=== PATIENT | female | born 1940 | race Caucasian/White ===

== ENCOUNTER 2017-04-04 19:29 | Observation (INO) | payer OTHER ==
[2017-04-04 19:39] VITALS: BMI 24.1
[2017-04-04] MEDS ORDERED: Morphine 2 mg/ml ISec IVP STA (22:09)
[2017-04-04] MEDS ORDERED: Morphine 2 mg/ml ISec ONE (22:09)
[2017-04-04 22:37] LABS: BASO # 0.06 K/mm3 (0.0-2.0); BASO % 1.8 % (0.0-3.0); EOS % 0.6 % (1.5-5.0); GRAN # 2.21 (1.4-6.5); GRAN % 66.7 % (50.0-68.0); HEMOGLOBIN 9.3 g/dL (12.0-16.0); LYMPH # 0.7 (1.2-3.4); LYMPH % 21.8 % (22.0-35.0); MEAN CORPUSCULAR HEMOGLOBIN 35.5 pg (25.0-35.0); MEAN CORPUSCULAR HGB CONC 32.9 g/dl (31.0-37.0); MEAN PLATELET VOLUME 10.6 fl (7.0-11.0); MONO # 0.3 (0.1-0.6); MONO % 9.1 % (1.0-6.0); RBC 2.62 10^6/uL (3.5-6.1); RED CELL DISTRIBUTION WIDTH 14.7 % (11.5-14.5); WHITE BLOOD COUNT 3.3 10^3/ul (4.5-11.0)
[2017-04-04 22:42] LABS: ALB/GLOB RATIO 1.4 (1.1-1.8); ALBUMIN 4.1 g/dL (3.0-4.8); ALT/SGPT 38 U/L (7-56); AST/SGOT 43 U/L (14-36); BLOOD UREA NITROGEN 14 mg/dL (7-21); CALCIUM 9.7 mg/dL (8.4-10.5); GFR AFRICAN-AMERICAN > 60; GFR NON-AFRICAN AMERICAN > 60
[2017-04-04 22:47] LABS: INR 1.09 (0.93-1.08); PARTIAL THROMBOPLASTIN TIME 30.9 Seconds (25.1-36.5); PROTHROMBIN TIME 12.4 SECONDS (9.4-12.5)
[2017-04-04] MEDS ORDERED: Iohexol 350 MG/100 ML VIAL ONE (23:04)
[2017-04-04 23:28] LABS: URINE BILIRUBIN NEGATIVE (NEGATIVE); URINE BLOOD NEGATIVE (NEGATIVE); URINE GLUCOSE (UA) NEGATIVE (NEGATIVE); URINE LEUKOCYTE ESTERASE TRACE Leu/uL (NEGATIVE); URINE NITRATE NEGATIVE (NEGATIVE); URINE PROTEIN NEGATIVE mg/dL (<30 mg/dL); URINE UROBILINOGEN 0.2 E.U./dL (<1 E.U./dL)
[2017-04-04 23:45] LABS: URINE APPEARANCE CLEAR (CLEAR); URINE COLOR YELLOW (YELLOW)
[2017-04-04 23:56] LABS: URINE EPITHELIAL CELLS 0 - 2 /hpf (0-5); URINE RBC 0 - 2 /hpf (0-2); URINE WBC 0 - 2 /hpf (0-6)
--- NOTE | 2017-04-05 00:12 | CT ---
EXAM: CT Chest With Intravenous Contrast CT Abdomen and Pelvis With Intravenous Contrast CLINICAL HISTORY: 77 years old, female; Pain and injury or trauma; Fall; Initial encounter; Abrasion; Abdominal pain; Flank; Right; Pleuordynia; Patient HX: S/P fall onto bathtub, + rlq pain TECHNIQUE: Axial computed tomography images of the chest, abdomen and pelvis with intravenous contrast. All CT scans at this facility use one or more dose reduction techniques, viz.: automated exposure control; ma/kV adjustment per patient size (including targeted exams where dose is matched to indication; i.e. head); or iterative reconstruction technique. Coronal and sagittal reformatted images were created and reviewed. CONTRAST: 45 mL of OMNIPAQUE 350 administered intravenously. COMPARISON: No relevant prior studies available. FINDINGS: CHEST: Lungs: Diffuse interstitial edema. Bilateral pulmonary groundglass opacity. Pleural space: Trace to small right pleural effusion. No pneumothorax. Heart: Mild cardiomegaly. No significant pericardial effusion. Mediastinum: Small hiatal hernia. ABDOMEN: Liver: Unremarkable. No mass. Gallbladder and bile ducts: Unremarkable. No calcified stones. No ductal dilation. Pancreas: Unremarkable. No ductal dilation. No mass. Spleen: Unremarkable. No splenomegaly. Adrenals: 12 mm right adrenal nodule. Kidneys and ureters: Unremarkable. No hydronephrosis. No solid mass. Stomach and bowel: Unremarkable. No obstruction. Appendix: No findings to suggest acute appendicitis. PELVIS: Bladder: Unremarkable. No mass. Reproductive: Hysterectomy. CHEST, ABDOMEN and PELVIS: Intraperitoneal space: Unremarkable. No significant fluid collection. No free air. Bones/joints: Nondisplaced fractures of the posterior aspect right ribs 9 through 11. Diffuse spinal degenerative changes. No dislocation. Soft tissues: Right breast implant. Right axillary clips. Vasculature: Atherosclerotic vascular disease. No aneurysm. Lymph nodes: Unremarkable. No enlarged lymph nodes. IMPRESSION: 1. Nondisplaced fractures of the posterior aspect right ribs 9 through 11. 2. Trace to small right pleural effusion. 3. Mild to moderate heart failure. 4. Indeterminate 12 mm right adrenal nodule. 5. Remainder of findings as above.
--- NOTE | 2017-04-05 00:20 | ED PDOC ---
Arrival/HPI - General Chief Complaint: Trauma Time Seen by Provider: 04/04/17 19:55 Historian: Patient - History of Present Illness Narrative History of Present Illness (Text): 77 y/o woman w/ pmhx of breast cancer, HTN, anemia, [facility] , returinng to [place] yesterday 04/03/17, presents s/p accidental trip ad fall while stepping ou of shower, falling onto the edge of her tub, point of impact being her right flank/rt. midaxxillary rib line. Denies hemoptysis/hematochezia/hematuria. Denies other corporeal pain/head rauma and taking anticoagulants. 04/05/17 00:16 Time/Duration: Prior to Arrival Symptom Onset: Sudden Symptom Course: Worsening Quality: Aching Past Medical History - Provider Review Nursing Documentation Reviewed: Yes - Infectious Disease Hx of Infectious Diseases: None - Cardiac Hx Hypertension: Yes - Pulmonary Hx Pneumonia: Yes - Endocrine/Metabolic Hx Diabetes Mellitus Type 2: Yes Hx Hypothyroidism: Yes - Hematological/Oncological Hx Anemia: Yes Hx Cancer: Yes (r breast ca) - Musculoskeletal/Rheumatological Hx Falls: Yes - Psychiatric Hx Substance Use: No - Surgical History Hx Mastectomy: Yes (r breast) - Anesthesia Hx Anesthesia: Yes Hx Anesthesia Reactions: No Hx Malignant Hyperthermia: No Family/Social History - Physician Review Nursing Documentation Reviewed: Yes Family/Social History: No Known Family HX Smoking Status: Never Smoked Hx Alcohol Use: No Hx Substance Use: No Allergies/Home Meds Allergies/Adverse Reactions: Allergies No Known Allergies Allergy (Verified 04/04/17 19:39) Home Medications: Home Meds Medication Instructions Recorded Confirmed Atenolol [Tenormin] 1 tab PO DAILY 04/04/17 04/04/17 Atorvastatin [Lipitor] 1 tab PO HS 04/04/17 04/04/17 Glipizide [Glipizide ER] 1 tab PO DAILY 04/04/17 04/04/17 Levothyroxine [Synthroid] 1 tab PO DAILY 04/04/17 04/04/17 Losartan [Cozaar] 1 tab PO DAILY 04/04/17 04/04/17 Palbociclib [Ibrance] 1 tab PO DAILY 04/04/17 04/04/17 Sertraline [Zoloft] 1 tab PO DAILY 04/04/17 04/04/17 metFORMIN [glucOPHAGE] 1 tab PO BID 04/04/17 04/04/17 Review of Systems - Review of Systems Constitutional: Normal Eyes: Normal ENT: Normal Respiratory: Normal Cardiovascular: Normal Gastrointestinal: Normal Genitourinary Female: Normal Musculoskeletal: Back Pain Skin: Normal Neurological: Normal Endocrine: Normal Hemo/Lymphatic: Normal Psychiatric: Normal Physical Exam Vital Signs Reviewed: Yes Vital Signs Temp Pulse Resp BP Pulse Ox 04/04/17 20:13 98.2 F 62 18 144/73 100 Temperature: Afebrile Blood Pressure: Normal Pulse: Regular Respiratory Rate: Normal Appearance: Positive for: Well-Appearing, Non-Toxic, Comfortable Pain Distress: None Mental Status: Positive for: Alert and Oriented X 3 - Systems Exam Head: Present: Atraumatic, Normocephalic Pupils: Present: PERRL Extroacular Muscles: Present: EOMI Conjunctiva: Present: Normal Mouth: Present: Moist Mucous Membranes Neck: Present: Normal Range of Motion Respiratory/Chest: Present: Clear to Auscultation, Good Air Exchange. No: Respiratory Distress, Accessory Muscle Use Cardiovascular: Present: Regular Rate and Rhythm, Normal S1, S2. No: Murmurs Abdomen: Present: Normal Bowel Sounds, Other (+ rlq ttp, + midaxillary line rib 8-10 pain, no ecchymoses , otherwise soft. ). No: Tenderness, Distention, Peritoneal Signs Back: Present: Normal Inspection Upper Extremity: Present: Normal Inspection. No: Cyanosis, Edema Lower Extremity: Present: Normal Inspection. No: Edema Neurological: Present: GCS=15, CN II-XII Intact, Speech Normal, Motor Func Grossly Intact, Normal Sensory Function, Normal Cerebellar Funct, Norm Deep Tendon Reflexes, Gait Normal, Memory Normal Skin: Present: Warm, Dry, Normal Color. No: Rashes Psychiatric: Present: Alert, Oriented x 3, Normal Insight, Normal Concentration Medical Decision Making ED Course and Treatment: 77 y/o woman w/ afroeemntioned comoorbidities presents s/p accidental trip and fall onto rt isde atedge of tub r/o mutiplicity of rib fractures/ flail segment as well as blunt intrabdominal organ injury and/or intrabdominal injury. f/u labs f/u ct scan analgesia serial bowel exams if patient comfortable d/c home on analgesics and incentve spirometry. 04/05/17 00:21 - Lab Interpretations Lab Results: 04/04/17 22:05 04/04/17 22:05 Lab Results 04/04/17 22:50: Urine Color Yellow, Urine Appearance Clear, Urine pH 6.0, Ur Specific [place] 1.010, Urine Protein Negative, Urine Glucose (UA) Negative, Urine Ketones Negative, Urine Blood Negative, Urine Nitrate Negative, Urine Bilirubin Negative, Urine Urobilinogen 0.2, Ur Leukocyte Esterase Trace H, Urine RBC 0 - 2, Urine WBC 0 - 2, Ur Epithelial Cells 0 - 2 04/04/17 22:05: Sodium 143, Potassium 4.4, Chloride 105, Carbon Dioxide 29, Anion Gap 13, BUN 14, Creatinine 0.9, Est GFR ( Amer) > 60, Est GFR (Non- Af Amer) > 60, Random Glucose 144 H, Calcium 9.7, Total Bilirubin 0.5, AST 43 H , ALT 38, Alkaline Phosphatase 64, Total Protein 7.0, Albumin 4.1, Globulin 3.0 , Albumin/Globulin Ratio 1.4 04/04/17 22:05: PT 12.4, INR 1.09 H, APTT 30.9 04/04/17 22:05: WBC 3.3 L, RBC 2.62 L, Hgb 9.3 L, Hct 28.3 L, MCV 108.0 H, MCH 35.5 H, MCHC 32.9, RDW 14.7 H, Plt Count 222, MPV 10.6, Gran % 66.7, Lymph % ( Auto) 21.8 L, [place] % (Auto) 9.1 H, Eos % (Auto) 0.6 L, Baso % (Auto) 1.8, Gran # 2.21, Lymph # 0.7 L, [place] # 0.3, Eos # 0.0, Baso # 0.06 - RAD Interpretation Radiology Orders: 04/04/17 22:09 CHEST,ABD,PEL W/IV CONT ONLY [CT] Stat 04/04/17 22:10 RIBS RIGHT & PA CHEST [RAD] Stat - Medication Orders Current Medication Orders: Discontinued Medications Cyclobenzaprine HCl (Flexeril) 5 mg PO STAT STA Stop: 04/04/17 22:11 Last Admin: 04/04/17 22:48 Dose: 5 mg Morphine Sulfate (Morphine) 2 mg IVP STAT STA Stop: 04/04/17 22:10 Last Admin: 04/04/17 22:15 Dose: 2 mg MAR Pain Assessment Document 04/04/17 22:15 RD (Rec: 04/04/17 22:28 RD [facility] [id number]) Pain Reassessment Is this a pain reassessment? No Sleep Is patient sleeping during reassessment? No Presence of Pain Presence of Pain Yes Description Pain Behavior Moaning Facial Grimacing IVP Administration Document 04/04/17 22:15 RD (Rec: 04/04/17 22:28 RD [facility] [id number]) Charges for Administration # of IVP Administrations 1 Disposition/Present on Arrival - Present on Arrival History of DVT/PE: No History of Uncontrolled Diabetes: No Urinary Catheter: No History of Decub. Ulcer: No History Surgical Site Infection Following: None - Disposition
[2017-04-05] MEDS ORDERED: Oxycodone/Acetaminophen 5/325 mg Tab PO STA (00:23)
--- NOTE | 2017-04-05 00:39 | ED PDOC ---
Physical Exam Vital Signs Temp Pulse Resp BP Pulse Ox 04/04/17 20:13 98.2 F 62 18 144/73 100 Medical Decision Making ED Course and Treatment: 04/05/17 00:39 Case endorsed to me by Dr. Todd. Pending CT Abd/Pelvis w/ IV Contrast. Follow up on Labs. EXAM: CT Chest With Intravenous Contrast CT Abdomen and Pelvis With Intravenous Contrast Dictated and Authenticated by: Real Peterson MD 04/05/2017 12:12 AM IMPRESSION: 1. Nondisplaced fractures of the posterior aspect right ribs 9 through 11. 2. Trace to small right pleural effusion. 3. Mild to moderate heart failure. 4. Indeterminate 12 mm right adrenal nodule. 5. Remainder of findings as above. 04/05/17 01:[address] Ruiz who is aware and agrees with the plan. Patient will be admitted for observation. - Lab Interpretations Lab Results: 04/04/17 22:05 04/04/17 22:05 Lab Results 04/04/17 22:50: Urine Color Yellow, Urine Appearance Clear, Urine pH 6.0, Ur Specific [place] 1.010, Urine Protein Negative, Urine Glucose (UA) Negative, Urine Ketones Negative, Urine Blood Negative, Urine Nitrate Negative, Urine Bilirubin Negative, Urine Urobilinogen 0.2, Ur Leukocyte Esterase Trace H, Urine RBC 0 - 2, Urine WBC 0 - 2, Ur Epithelial Cells 0 - 2 04/04/17 22:05: Sodium 143, Potassium 4.4, Chloride 105, Carbon Dioxide 29, Anion Gap 13, BUN 14, Creatinine 0.9, Est GFR ( Amer) > 60, Est GFR (Non- Af Amer) > 60, Random Glucose 144 H, Calcium 9.7, Total Bilirubin 0.5, AST 43 H , ALT 38, Alkaline Phosphatase 64, Total Protein 7.0, Albumin 4.1, Globulin 3.0 , Albumin/Globulin Ratio 1.4 04/04/17 22:05: PT 12.4, INR 1.09 H, APTT 30.9 04/04/17 22:05: WBC 3.3 L, RBC 2.62 L, Hgb 9.3 L, Hct 28.3 L, MCV 108.0 H, MCH 35.5 H, MCHC 32.9, RDW 14.7 H, Plt Count 222, MPV 10.6, Gran % 66.7, Lymph % ( Auto) 21.8 L, [place] % (Auto) 9.1 H, Eos % (Auto) 0.6 L, Baso % (Auto) 1.8, Gran # 2.21, Lymph # 0.7 L, [place] # 0.3, Eos # 0.0, Baso # 0.06 - RAD Interpretation Radiology Orders: 04/04/17 22:09 CHEST,ABD,PEL W/IV CONT ONLY [CT] Stat 04/04/17 22:10 RIBS RIGHT & PA CHEST [RAD] Stat - Medication Orders Current Medication Orders: Discontinued Medications Cyclobenzaprine HCl (Flexeril) 5 mg PO STAT STA Stop: 04/04/17 22:11 Last Admin: 04/04/17 22:48 Dose: 5 mg Morphine Sulfate (Morphine) 2 mg IVP STAT STA Stop: 04/04/17 22:10 Last Admin: 04/04/17 22:15 Dose: 2 mg MAR Pain Assessment Document 04/04/17 22:15 RD (Rec: 04/04/17 22:28 RD [facility] [id number]) Pain Reassessment Is this a pain reassessment? No Sleep Is patient sleeping during reassessment? No Presence of Pain Presence of Pain Yes Description Pain Behavior Moaning Facial Grimacing IVP Administration Document 04/04/17 22:15 RD (Rec: 04/04/17 22:28 RD [facility] [id number]) Charges for Administration # of IVP Administrations 1 Oxycodone/Acetaminophen (Percocet 5/325 Mg Tab) 1 tab PO STAT STA Stop: 04/05/17 00:24 Last Admin: 04/05/17 00:58 Dose: 1 tab MAR Pain Assessment Document 04/05/17 00:58 YP (Rec: 04/05/17 00:58 YP [id number]) Pain Reassessment Is this a pain reassessment? Yes Sleep Is patient sleeping during reassessment? No Presence of Pain Presence of Pain Yes - Scribe Statement The provider has reviewed the documentation as recorded by the Yiibreid Corrales Provider Scribe Attestation: All medical record entries made by the Scribreid were at my direction and personally dictated by me. I have reviewed the chart and agree that the record accurately reflects my personal performance of the history, physical exam, medical decision making, and the department course for this patient. I have also personally directed, reviewed, and agree with the discharge instructions and disposition. Disposition/Present on Arrival - Present on Arrival History of DVT/PE: No History of Uncontrolled Diabetes: No Urinary Catheter: No History of Decub. Ulcer: No History Surgical Site Infection Following: None - Disposition Forms: [employer] (Bel[place]ian)
[2017-04-05] MEDS ORDERED: HYDROmorphone 0.5 mg/0.5 ml ISec IVP STA (02:16)
[2017-04-05] MEDS ORDERED: HYDROmorphone 0.5 mg/0.5 ml ISec IVP PRN ×2 (03:07→05:18)
[2017-04-05] MEDS: Levothyroxine 50 MCG TAB PO SCH (06:08)
--- NOTE | 2017-04-05 07:34 | RAD ---
PROCEDURE: Radiographs of the Chest and Right Ribs. HISTORY: fall onto bathtub , rib ttp COMPARISON: None available. TECHNIQUE: Frontal radiograph of the chest and multiple oblique radiographs of the right ribs were obtained. FINDINGS: RIGHT RIBS: No fracture or focal lesion visualized. LUNGS: 4 millimeter left upper lobe nodule. Bilateral interstitial fibrosis. PLEURA: No pneumothorax or pleural fluid. CARDIOVASCULAR: Normal sized heart. No pulmonary vascular congestion. Atherosclerotic aorta. OTHER FINDINGS: None. IMPRESSION: 4 millimeter left upper lobe nodule. Bilateral interstitial fibrosis.
--- NOTE | 2017-04-05 09:48 | CP.PCM.HP ---
<Roseann Rosario - Last Filed: 04/05/17 09:50> History of Present Illness - History of Present Illness History of Present Illness: PGY-2 H&P for hospitalist service 77 yo female with past medical history of breast cancer, HTN, anemia, hypothyriosim, diabetes, recent admission to a [place] hospital for pneumonia presents after fall. Patient states that she accidentally slipped and fall while stepping out of shower. She states that she fall onto the edge of her tub , hitting her right side. She denies any loss of consciousness, trauma to her head. She denies any dizziness, light headedness before or after the event and that she was able to get up by herself. She denies previous falls, she walks without assistance. She states the pain with worse with movement of deep breaths , pain is located on the right side from the front to the back. Denies radiation of pain. Denies hemoptysis, hematochezia, hematuria, sob, abd pain, n/ v, headaches. Patient has history of breast ca, diagnosed 2001 s/p mastectomy, currently on medication from oncologist. Patient is visiting from [place]. PMH: breast cancer, HTN, anemia, hypothyriosim, diabetes, recent admission to a [place] hospital for pneumonia PSH: mastectomy social history: denies smoking, alcohol use, illicit drug use family history: denies allergy: NKDA home medication: palbociclib, losartan, glipizide, synthriod, atenolol, metformin, sertraline Present on Admission - Present on Admission Any Indicators Present on Admission: No Review of Systems - Constitutional Constitutional: absent: Fatigue, Fever, Headache, Weakness - EENT Nose/Mouth/Throat: absent: Nasal Congestion, Nasal Discharge, Sore Throat - Cardiovascular Cardiovascular: absent: Chest Pain, Diaphoresis, Dyspnea on Exertion, Palpitations, Syncope - Respiratory Respiratory: absent: Cough, Dyspnea, Hemoptysis, Wheezing - Gastrointestinal Gastrointestinal: absent: Abdominal Pain, Constipation, Diarrhea, Nausea, Vomiting - Genitourinary Genitourinary: absent: Difficulty Urinating, Dysuria, Hematuria - Musculoskeletal Musculoskeletal: absent: Numbness, Tingling Additional comments: right sided rib pain - Integumentary Integumentary: absent: New Lesions, Pruritus, Skin Ulcer, Wounds - Neurological Neurological: absent: Abnormal Gait, Disequilibrium, Dizziness, Numbness, Headaches, Syncope, Tingling, Weakness - Hematologic/Lymphatic Hematologic: absent: Easy Bleeding, Easy Bruising Past Patient History - Infectious Disease Hx of Infectious Diseases: None - Past Social History Smoking Status: Never Smoked - CARDIAC Hx Hypertension: Yes - PULMONARY Hx Pneumonia: Yes - ENDOCRINE/METABOLIC Hx Diabetes Mellitus Type 2: Yes Hx Hypothyroidism: Yes - HEMATOLOGICAL/ONCOLOGICAL Hx Anemia: Yes Hx Cancer: Yes (r breast ca) - MUSCULOSKELETAL/RHEUMATOLOGICAL Hx Falls: Yes - PSYCHIATRIC Hx Substance Use: No - SURGICAL HISTORY Hx Mastectomy: Yes (r breast) - ANESTHESIA Hx Anesthesia: Yes Hx Anesthesia Reactions: No Hx Malignant Hyperthermia: No Meds Allergies/Adverse Reactions: Allergies Allergy/AdvReac Type Severity Reaction Status Date / Time No Known Allergies Allergy Verified 04/04/17 19:39 Physical Exam - Constitutional Appears: No Acute Distress - Head Exam Head Exam: ATRAUMATIC, NORMAL INSPECTION, NORMOCEPHALIC - Eye Exam Eye Exam: EOMI, Normal appearance - ENT Exam ENT Exam: Mucous Membranes Moist - Respiratory Exam Respiratory Exam: Chest Wall Tenderness, Clear to Auscultation Bilateral, NORMAL BREATHING PATTERN. absent: Rhonchi, Wheezes, Respiratory Distress - Cardiovascular Exam Cardiovascular Exam: REGULAR RHYTHM, +S1, +S2. absent: Tachycardia, Diastolic murmur, Systolic Murmur - GI/Abdominal Exam GI & Abdominal Exam: Normal Bowel Sounds, Soft. absent: Distended, Firm, Guarding, Tenderness - Extremities Exam Extremities exam: Positive for: normal inspection. Negative for: pedal edema, tenderness - Back Exam Back exam: tenderness (right sided ribs anteriorly to posterior) - Neurological Exam Neurological exam: Alert, Oriented x3 - Psychiatric Exam Psychiatric exam: Normal Affect, Normal Mood - Skin Skin Exam: Dry, Intact, Normal Color, Warm Results - Vital Signs Recent Vital Signs: Last Vital Signs Temp 98 F 04/05/17 07:00 Pulse 55 L 04/05/17 07:00 Resp 20 04/05/17 07:00 BP 180/71 H 04/05/17 07:00 Pulse Ox 97 04/05/17 03:10 - Labs Result Diagrams: 04/04/17 22:05 04/04/17 22:05 Labs: Laboratory Results - last 24 hr 04/05/17 04/05/17 04/05/17 04:16 07:22 08:25 POC Glucose (mg/dL) 113 H 94 TSH 3rd Generation 1.20 Assessment & Plan - Assessment and Plan (Free Text) Assessment: 77 yo female with past medical history of breast cancer, HTN, anemia, hypothyriosim, diabetes, recent admission to a [place] hospital for pneumonia presents after mechanical fall found to have multiple rib fractures. Plan: 1. fall, mechanical - rib xray showed 4mm module bilateral fibrosis - ct abd pelv showed non displaced fractures of rib 9-11, small pleural effusion - repeat cxr tomorrow - supplemental calcium and vitamin D - pain management with percocet q4 - Colace to avoid constipation - PT - incentive spirometer - patient will need follow up with pcp 2. anemia - h/o of anemia - macrocytic, will order B12, folate as well as iron studies - repeat cbc in AM 3. bradycardia - will order EKG 4. h/o hypothyriodism - TSH level within normal limits - continue home synthroid 5. h/o diabetes - continue home metformin and glipizide 6. HTN - uncontrolled, most likely due to pain - continue atenolol - will order ekg, if bradycardia continues consider decreasing dose case reviewed and discussed with attending <Sadiq Phillip P - Last Filed: 04/05/17 12:21> Results - Vital Signs Recent Vital Signs: Last Vital Signs Temp 98 F 04/05/17 07:00 Pulse 57 L 04/05/17 10:38 Resp 20 04/05/17 07:00 BP 185/73 H 04/05/17 10:38 Pulse Ox 97 04/05/17 03:10 - Labs Result Diagrams: 04/04/17 22:05 04/04/17 22:05 Labs: Laboratory Results - last 24 hr 04/05/17 04/05/17 04/05/17 04:16 07:22 07:30 POC Glucose (mg/dL) 113 H 94 Iron 87 TIBC 352 % Saturation 25 TSH 3rd Generation 04/05/17 04/05/17 08:25 11:35 POC Glucose (mg/dL) 178 H Iron TIBC % Saturation TSH 3rd Generation 1.20 Attending/Attestation - Attestation I have personally seen and examined this patient.: Yes I have fully participated in the care of the patient.: Yes I have reviewed all pertinent clinical information: Yes Notes (Text): 04/05/17 12:17 77 yo female with past medical history of breast cancer, HTN, anemia, hypothyriosim, diabetes, recent admission to a [place] hospital for pneumonia presents after mechanical fall found to have multiple rib fractures. Plan Control pain with oral meds, PT/OT eval and treatment Repeat CXR, check if interval bleeding/pleural fluid Anemia, macrocytosis, check b12, folate, iron, tsh Meds to prevent constipation CT chest suggesting interstitial edema patient clinically is not symptomatic, no acute treatment indicated can f/u with primary physician, d/c plan 1-2 days as cleared by PT above w/u stable.
[2017-04-05] MEDS: Oxycodone/Acetaminophen 5/325 mg Tab PO PRN ×3 (10:00→20:44)
[2017-04-05] MEDS: Cholecalciferol 400 Intl Units Tab PO SCH (10:38)
[2017-04-05] MEDS: GlipiZIDE 2.5 mg SR Tab PO SCH (10:39)
[2017-04-05 11:19] LABS: % IRON SATURATION 25 % (20-55); IRON 87 ug/dL (45-180); TOTAL IRON BINDING CAPACITY 352 ug/dL (265-497)
--- NOTE | 2017-04-05 11:59 | CARD ---
APPROVED REPORT EKG Measurement Heart [id number] ID [id number] <Conclusion> Sinus bradycardia Otherwise normal ECG
[2017-04-05] MEDS ORDERED: PALBOCICLIB PO SCH (14:45)
[2017-04-05] MEDS: Insulin Reg-LOW-Coverage SC SCH ×4 (16:49→22:00)
[2017-04-05] MEDS: PALBOCICLIB PO SCH (16:57)
[2017-04-05 18:11] VITALS: O2SAT 99
[2017-04-05 22:27] LABS: FERRITIN 32.8 ng/mL
[2017-04-05 22:58] LABS: FOLATE 13.1 ng/mL
[2017-04-06] MEDS: Oxycodone/Acetaminophen 5/325 mg Tab PO PRN ×2 (00:57→10:08)
[2017-04-06 02:41] VITALS: RESP 18; TEMP 98.9
[2017-04-06] MEDS: Levothyroxine 50 MCG TAB PO SCH (06:09)
[2017-04-06 07:28] LABS: BASO # 0.1 K/mm3 (0.0-2.0); BASO % 2.9 % (0.0-3.0); EOS % 0.6 % (1.5-5.0); GRAN # 2.16 (1.4-6.5); GRAN % 62.8 % (50.0-68.0); HEMOGLOBIN 9.6 g/dL (12.0-16.0); LYMPH # 0.8 (1.2-3.4); LYMPH % 24.1 % (22.0-35.0); MEAN CELL VOLUME 108.2 fl (80.0-105.0); MEAN CORPUSCULAR HGB CONC 33.2 g/dl (31.0-37.0); MEAN PLATELET VOLUME 10.6 fl (7.0-11.0); MONO # 0.3 (0.1-0.6); MONO % 9.6 % (1.0-6.0); RBC 2.67 10^6/uL (3.5-6.1); WHITE BLOOD COUNT 3.4 10^3/ul (4.5-11.0)
[2017-04-06 07:58] LABS: ALB/GLOB RATIO 1.3 (1.1-1.8); ALBUMIN 3.9 g/dL (3.0-4.8); ALT/SGPT 29 U/L (7-56); AST/SGOT 23 U/L (14-36); BLOOD UREA NITROGEN 13 mg/dL (7-21); CALCIUM 9.4 mg/dL (8.4-10.5); GFR AFRICAN-AMERICAN > 60; GFR NON-AFRICAN AMERICAN > 60
[2017-04-06] MEDS ORDERED: PALBOCICLIB PO SCH (10:00)
[2017-04-06] MEDS: Cholecalciferol 400 Intl Units Tab PO SCH (10:07)
[2017-04-06] MEDS: GlipiZIDE 2.5 mg SR Tab PO SCH (10:08)
[2017-04-06] MEDS: PALBOCICLIB PO SCH (10:10)
[2017-04-06 10:13] VITALS: BP 185/89; PULSE 88
--- NOTE | 2017-04-06 10:36 | RAD ---
HISTORY: rib fracture COMPARISON: 04/04/2017 CT thorax abdomen and pelvis. TECHNIQUE: Chest PA and lateral FINDINGS: LUNGS: Prominent interstitial markings the overall appearance may represent pulmonary edema. Alternately lymphangitis spread of tumor can assume this appearance. PLEURA: No significant pleural effusion identified. No pneumothorax apparent. CARDIOVASCULAR: Normal. OSSEOUS STRUCTURES: No significant abnormalities. VISUALIZED UPPER ABDOMEN: Normal. OTHER FINDINGS: Postoperative findings related to right mastectomy and axillary node dissection. IMPRESSION: Increased interstitial markings of uncertain etiology. Similar findings identified previously. Pulmonary edema can assume this appearance as can lymphangitic spread of tumor.
[2017-04-06] MEDS: Insulin Reg-LOW-Coverage SC SCH ×2 (12:20→12:36)
--- NOTE | 2017-04-06 20:02 | CP.PCM.DIS ---
<Evan Espinoza - Last Filed: 04/06/17 19:59> Provider - Provider Date of Admission: 04/05/17 02:02 Attending physician: Vianey Meza MD Time Spent in preparation of Discharge (in minutes): 45 Diagnosis - Discharge Diagnosis (1) Rib fractures Status: Acute Priority: High (2) Hypothyroid Status: Chronic Priority: Medium (3) Dyslipidemia Status: Acute (4) History of breast cancer Status: Chronic Priority: High (5) Diabetes mellitus Status: Chronic Priority: High (6) Hypertension Status: Chronic Priority: Medium Hospital Course - Lab Results Lab Results: Most Recent Lab Values WBC 3.4 10^3/ul (4.5-11.0) L 04/06/17 07:10 RBC 2.67 10^6/uL (3.5-6.1) L 04/06/17 07:10 Hgb 9.6 g/dL (12.0-16.0) L 04/06/17 07:10 Hct 28.9 % (36.0-48.0) L 04/06/17 07:10 MCV 108.2 fl (80.0-105.0) H 04/06/17 07:10 MCH 36.0 pg (25.0-35.0) H 04/06/17 07:10 MCHC 33.2 g/dl (31.0-37.0) 04/06/17 07:10 RDW 15.0 % (11.5-14.5) H 04/06/17 07:10 Plt Count 228 10^3/uL (120.0-450.0) 04/06/17 07:10 MPV 10.6 fl (7.0-11.0) 04/06/17 07:10 Gran % 62.8 % (50.0-68.0) 04/06/17 07:10 Lymph % (Auto) 24.1 % (22.0-35.0) 04/06/17 07:10 Miner % (Auto) 9.6 % (1.0-6.0) H 04/06/17 07:10 Eos % (Auto) 0.6 % (1.5-5.0) L 04/06/17 07:10 Baso % (Auto) 2.9 % (0.0-3.0) 04/06/17 07:10 Gran # 2.16 (1.4-6.5) 04/06/17 07:10 Lymph # 0.8 (1.2-3.4) L 04/06/17 07:10 Miner # 0.3 (0.1-0.6) 04/06/17 07:10 Eos # 0.0 (0.0-0.7) 04/06/17 07:10 Baso # 0.10 K/mm3 (0.0-2.0) 04/06/17 07:10 PT 12.4 SECONDS (9.4-12.5) 04/04/17 22:05 INR 1.09 (0.93-1.08) H 04/04/17 22:05 APTT 30.9 Seconds (25.1-36.5) 04/04/17 22:05 Sodium 140 mmol/L (132-148) 04/06/17 07:10 Potassium 4.6 mmol/L (3.6-5.0) 04/06/17 07:10 Chloride 102 mmol/L (98-107) 04/06/17 07:10 Carbon Dioxide 28 mmol/L (21-33) 04/06/17 07:10 Anion Gap 15 (10-20) 04/06/17 07:10 BUN 13 mg/dL (7-21) 04/06/17 07:10 Creatinine 0.7 mg/dl (0.7-1.2) 04/06/17 07:10 Est GFR ( Amer) > 60 04/06/17 07:10 Est GFR (Non-Af Amer) > 60 04/06/17 07:10 POC Glucose (mg/dL) 222 mg/dL (65-110) H 04/06/17 11:23 Random Glucose 201 mg/dL (70-110) H 04/06/17 07:10 Calcium 9.4 mg/dL (8.4-10.5) 04/06/17 07:10 Iron 87 ug/dL (45-180) 04/05/17 07:30 TIBC 352 ug/dL (265-497) 04/05/17 07:30 % Saturation 25 % (20-55) 04/05/17 07:30 Ferritin 32.8 ng/mL 04/05/17 07:30 Total Bilirubin 0.7 mg/dL (0.2-1.3) 04/06/17 07:10 AST 23 U/L (14-36) 04/06/17 07:10 ALT 29 U/L (7-56) 04/06/17 07:10 Alkaline Phosphatase 64 U/L (38-126) 04/06/17 07:10 Total Protein 6.7 g/dL (5.8-8.3) 04/06/17 07:10 Albumin 3.9 g/dL (3.0-4.8) 04/06/17 07:10 Globulin 2.9 gm/dL 04/06/17 07:10 Albumin/Globulin Ratio 1.3 (1.1-1.8) 04/06/17 07:10 Vitamin B12 256 pg/mL (239-931) 04/05/17 07:30 Folate 13.1 ng/mL 04/05/17 07:30 TSH 3rd Generation 1.20 mIU/mL (0.46-4.68) 04/05/17 08:25 Urine Color Yellow (YELLOW) 04/04/17 22:50 Urine Appearance Clear (CLEAR) 04/04/17 22:50 Urine pH 6.0 (4.7-8.0) 04/04/17 22:50 Ur Specific [place] 1.010 (1.005-1.035) 04/04/17 22:50 Urine Protein Negative mg/dL (<30 mg/dL) 04/04/17 22:50 Urine Glucose (UA) Negative mg/dL (NEGATIVE) 04/04/17 22:50 Urine Ketones Negative mg/dL (NEGATIVE) 04/04/17 22:50 Urine Blood Negative (NEGATIVE) 04/04/17 22:50 Urine Nitrate Negative (NEGATIVE) 04/04/17 22:50 Urine Bilirubin Negative (NEGATIVE) 04/04/17 22:50 Urine Urobilinogen 0.2 E.U./dL (<1 E.U./dL) 04/04/17 22:50 Ur Leukocyte Esterase Trace Marielos/uL (NEGATIVE) H 04/04/17 22:50 Urine RBC 0 - 2 /hpf (0-2) 04/04/17 22:50 Urine WBC 0 - 2 /hpf (0-6) 04/04/17 22:50 Ur Epithelial Cells 0 - 2 /hpf (0-5) 04/04/17 22:50 - Hospital Course Hospital Course: Patient is a 77 year old female with past medical history of breast cancer, HTN , anemia, hypothyriosim, diabetes, recent admission to a [place] hospital for pneumonia presenting s/p fall. Patient states that she accidentally slipped and fall while stepping out of shower. Imaging was done which revealed patient had non dispalced fracture of posterior aspects of ribs 9 to 11. During course of hospital stay patient received oxygen via nasal cannula and pain medication for her fractures ribs. Patient's home medications were also restarted to keep her hypertension, hypothroidism, NIDDM, breast cancer hormones, and dyslipidemia in control. Pain continually improved in patient throughout visit. Physical therapy evaluated patient and patient was cleared for discharge. Patient and family were both in agreement with plan of discharge, patient was then discharged. Case discussed and reviewed with Dr. Jaziel Espinoza PGY1 Discharge Exam - Head Exam Head Exam: ATRAUMATIC, NORMAL INSPECTION, NORMOCEPHALIC - Eye Exam Eye Exam: EOMI, Normal appearance - ENT Exam ENT Exam: Mucous Membranes Moist - Neck Exam Neck exam: Normal Inspection - Respiratory Exam Respiratory Exam: NORMAL BREATHING PATTERN, UNREMARKABLE - Cardiovascular Exam Cardiovascular Exam: REGULAR RHYTHM, +S1, +S2 - GI/Abdominal Exam GI & Abdominal Exam: Normal Bowel Sounds, Unremarkable - Extremities Exam Extremities exam: normal inspection - Back Exam Back exam: NORMAL INSPECTION - Neurological Exam Neurological exam: Alert, CN II-XII Intact, Oriented x3 - Psychiatric Exam Psychiatric exam: Normal Affect, Normal Mood - Skin Skin Exam: Intact, Normal Color, Warm Discharge Plan - Discharge Medications Prescriptions: Furosemide [Lasix] 40 mg PO DAILY #10 tab oxyCODONE/Acetaminophen [Percocet 5/325 mg Tab] 1 tab PO Q4H PRN #12 tab PRN Reason: Pain, Severe (8-10) oxyCODONE/Acetaminophen [Percocet 5/325 mg Tab] 1 ea PO Q6 #12 tab - Follow Up Plan Condition: GOOD Disposition: HOME/ ROUTINE Instructions: Pneumococcal Vaccine for Adults (DC), Heart Healthy Diet (DC), Diabetes Mellitus Type 1 in Adults (DC), Influenza Vaccine (DC), Chronic Hypertension (DC), Fall Prevention (DC) Additional Instructions: 1.Please follow up with your PMD in 3-5 days 2.Please go to your pharmacy to fill out and take medication given as prescribed. 3.Do not hesitate to return to the ED if your symptoms worsen or return. <YasmeenNicola [email or web address] - Last Filed: 04/07/17 14:59> Provider - Provider Date of Admission: 04/05/17 02:02 Attending physician: Vianey Meza MD Hospital Course - Lab Results Lab Results: Most Recent Lab Values WBC 3.4 10^3/ul (4.5-11.0) L 04/06/17 07:10 RBC 2.67 10^6/uL (3.5-6.1) L 04/06/17 07:10 Hgb 9.6 g/dL (12.0-16.0) L 04/06/17 07:10 Hct 28.9 % (36.0-48.0) L 04/06/17 07:10 MCV 108.2 fl (80.0-105.0) H 04/06/17 07:10 MCH 36.0 pg (25.0-35.0) H 04/06/17 07:10 MCHC 33.2 g/dl (31.0-37.0) 04/06/17 07:10 RDW 15.0 % (11.5-14.5) H 04/06/17 07:10 Plt Count 228 10^3/uL (120.0-450.0) 04/06/17 07:10 MPV 10.6 fl (7.0-11.0) 04/06/17 07:10 Gran % 62.8 % (50.0-68.0) 04/06/17 07:10 Lymph % (Auto) 24.1 % (22.0-35.0) 04/06/17 07:10 Miner % (Auto) 9.6 % (1.0-6.0) H 04/06/17 07:10 Eos % (Auto) 0.6 % (1.5-5.0) L 04/06/17 07:10 Baso % (Auto) 2.9 % (0.0-3.0) 04/06/17 07:10 Gran # 2.16 (1.4-6.5) 04/06/17 07:10 Lymph # 0.8 (1.2-3.4) L 04/06/17 07:10 Miner # 0.3 (0.1-0.6) 04/06/17 07:10 Eos # 0.0 (0.0-0.7) 04/06/17 07:10 Baso # 0.10 K/mm3 (0.0-2.0) 04/06/17 07:10 PT 12.4 SECONDS (9.4-12.5) 04/04/17 22:05 INR 1.09 (0.93-1.08) H 04/04/17 22:05 APTT 30.9 Seconds (25.1-36.5) 04/04/17 22:05 Sodium 140 mmol/L (132-148) 04/06/17 07:10 Potassium 4.6 mmol/L (3.6-5.0) 04/06/17 07:10 Chloride 102 mmol/L (98-107) 04/06/17 07:10 Carbon Dioxide 28 mmol/L (21-33) 04/06/17 07:10 Anion Gap 15 (10-20) 04/06/17 07:10 BUN 13 mg/dL (7-21) 04/06/17 07:10 Creatinine 0.7 mg/dl (0.7-1.2) 04/06/17 07:10 Est GFR ( Amer) > 60 04/06/17 07:10 Est GFR (Non-Af Amer) > 60 04/06/17 07:10 POC Glucose (mg/dL) 222 mg/dL (65-110) H 04/06/17 11:23 Random Glucose 201 mg/dL (70-110) H 04/06/17 07:10 Calcium 9.4 mg/dL (8.4-10.5) 04/06/17 07:10 Iron 87 ug/dL (45-180) 04/05/17 07:30 TIBC 352 ug/dL (265-497) 04/05/17 07:30 % Saturation 25 % (20-55) 04/05/17 07:30 Ferritin 32.8 ng/mL 04/05/17 07:30 Total Bilirubin 0.7 mg/dL (0.2-1.3) 04/06/17 07:10 AST 23 U/L (14-36) 04/06/17 07:10 ALT 29 U/L (7-56) 04/06/17 07:10 Alkaline Phosphatase 64 U/L (38-126) 04/06/17 07:10 Total Protein 6.7 g/dL (5.8-8.3) 04/06/17 07:10 Albumin 3.9 g/dL (3.0-4.8) 04/06/17 07:10 Globulin 2.9 gm/dL 04/06/17 07:10 Albumin/Globulin Ratio 1.3 (1.1-1.8) 04/06/17 07:10 Vitamin B12 256 pg/mL (239-931) 04/05/17 07:30 Folate 13.1 ng/mL 04/05/17 07:30 TSH 3rd Generation 1.20 mIU/mL (0.46-4.68) 04/05/17 08:25 Urine Color Yellow (YELLOW) 04/04/17 22:50 Urine Appearance Clear (CLEAR) 04/04/17 22:50 Urine pH 6.0 (4.7-8.0) 04/04/17 22:50 Ur Specific [place] 1.010 (1.005-1.035) 04/04/17 22:50 Urine Protein Negative mg/dL (<30 mg/dL) 04/04/17 22:50 Urine Glucose (UA) Negative mg/dL (NEGATIVE) 04/04/17 22:50 Urine Ketones Negative mg/dL (NEGATIVE) 04/04/17 22:50 Urine Blood Negative (NEGATIVE) 04/04/17 22:50 Urine Nitrate Negative (NEGATIVE) 04/04/17 22:50 Urine Bilirubin Negative (NEGATIVE) 04/04/17 22:50 Urine Urobilinogen 0.2 E.U./dL (<1 E.U./dL) 04/04/17 22:50 Ur Leukocyte Esterase Trace Marielos/uL (NEGATIVE) H 04/04/17 22:50 Urine RBC 0 - 2 /hpf (0-2) 04/04/17 22:50 Urine WBC 0 - 2 /hpf (0-6) 04/04/17 22:50 Ur Epithelial Cells 0 - 2 /hpf (0-5) 04/04/17 22:50 Attending/Attestation - Attestation I have personally seen and examined this patient.: Yes I have fully participated in the care of the patient.: Yes I have reviewed all pertinent clinical information, including history, physical exam and plan: Yes Notes (Text): 04/07/17 14:58 Attending note; Patient seen and examined with resident. Patient is a 77 year old female with past medical history of breast cancer, hypertension, anemia, hypothyriosim, diabetes, recent admission to a [place] hospital for pneumonia presents after mechanical fall found to have multiple rib fractures. Currently able to use incentive spirometry. Pain is better control. On Percocet. PT evaluation appreciated. Chest x-ray did not show any pneumothorax. Chronic changes noted. Patient is advised to follow-up with PMD upon discharge. Discharge home today. Diagnosis; Status post rib fracture History of breast CA Hypertension Anemia Chronic lung changes
== END 2017-04-06 16:36 | disposition home or self-care (01) ==
LOC: ED 19:29 → ERH 04-05 02:02 → 5RSO 04-05 04:22 → 5RNO 04-05 21:16
PROVIDERS: ADMIT Internal Medicine; ATTEND Internal Medicine
DX: S22.41XA Multiple fractures of ribs, right side, initial encounter for closed fracture (principal); W18.2XXA Fall in (into) shower or empty bathtub, initial encounter; Y92.002 Bathroom of unspecified non-institutional (private) residence as the place of occurrence of the external cause; Y93.E1 Activity, personal bathing and showering; Z85.3 Personal history of malignant neoplasm of breast; I10 Essential (primary) hypertension; E11.9 Type 2 diabetes mellitus without complications; D64.9 Anemia, unspecified; E03.9 Hypothyroidism, unspecified; Z87.01 Personal history of pneumonia (recurrent); Z90.10 Acquired absence of unspecified breast and nipple; E78.5 Hyperlipidemia, unspecified; Z79.84 Long term (current) use of oral hypoglycemic drugs
CPT/HCPCS: 36415; 71046; 71101; 71260; 74177; 80053; 81001; 82607; 82728; 82746; 82948; 83540; 83550; 84443; 85025; 85610; 85730; 93005; 96374; 97161; 99285; G0378; G8978; G8979; J0360; J1170; J2270; Q9967